=== PATIENT | male | born 1955 | race Caucasian/White ===

== ENCOUNTER → 2019-07-04 07:11 | Outpatient (CLI) | payer MEDICARE, OTHER, SELFPAY ==
--- NOTE | 2019-07-04 | DI.US.S_ITS ---
PROCEDURE: US ABD AORTA ANEURYSM SCREEN INDICATIONS: HISTORY SMOKING TECHNIQUE: Real time scanning was performed of the aorta and iliac arteries, with image documentation. COMPARISON: None. FINDINGS: Proximal aortic diameter could not be measured due to the poor visualization from bowel gas. Mid-aorta measures 2.1 cm. Distal aortic diameter is 1.8 cm. Aorta: Iliac arteries: Right common iliac artery measures 1.4 cm. Left common iliac artery measures 1.4 cm. IMPRESSION: Poor visualization of the upper third of the aorta due to overlying bowel gas, no aneurysm or dissection identified. Dictated by: Edwin Duran M.D. on 07/04/2019 at 10:51 Approved by: Edwin Duran M.D. on 07/04/2019 at 10:53
== END ==
PROVIDERS: Family Provider Family Medicine; PCP Family Medicine; Referring Provider Family Medicine; Visit Provider Family Medicine
DX: Z13.6 Encounter for screening for cardiovascular disorders (principal); I10 Essential (primary) hypertension; Z87.891 Personal history of nicotine dependence
CPT/HCPCS: 76706

== ENCOUNTER → 2019-12-26 14:15 | Outpatient (CLI) | payer MEDICARE, OTHER, SELFPAY ==
[2019-12-27 15:36] LABS: COVID19 Sendout Not Detected (Not Detect)
== END ==
PROVIDERS: PCP Family Medicine; Visit Provider Physician Assistant
DX: Z01.812 Encounter for preprocedural laboratory examination (principal)
CPT/HCPCS: 87635

== ENCOUNTER 2019-12-29 13:53 | Day surgery (SDC) | payer MEDICARE, OTHER, SELFPAY ==
--- NOTE | 2019-12-29 12:23 | P.HP_ITS ---
History of Present Illness History of Present Illness Date Patient Seen: 12/29/19 Chief complaint: SDC Narrative: 64 year old male comes in today for consideration of a screening colonoscopy. Last colonoscopy about 10-11 years ago in [facility], records not available at time of dictation. There have been no lower GI symptoms suggesting disease such as change in bowel habits, bleeding, abdominal pain or anemia. There's been no family history of colon cancer or colon polyps. Overall health issues have been stable, including no major cardiac events for at least 6 weeks. PCP: Dr. Beard Past medical history: Hypertension Hyperlipidemia Obesity Degenerative joint disease, bilateral Obstructive sleep apnea Past surgical history: Tonsillectomy Hernia removal Left knee arthroscopy Family history: Noncontributory . Social history: Retired Meds Home Medications and Allergies Home Medications Medication Instructions Recorded Confirmed Type lisinopril 10 mg PO DAILY 12/29/19 12/29/19 History loratadine [Claritin] 10 mg PO DAILY 12/29/19 12/29/19 History lovastatin 20 mg PO DAILY 12/29/19 12/29/19 History Allergies Allergy/AdvReac Type Severity Reaction Status Date / Time aspirin Allergy Severe Hives Verified 12/29/19 14:10 Review of Systems Review of Systems ROS: Yes All systems reviewed with the patient and are negative except as otherwise documented Exam Narrative Exam Narrative: GENERAL: Alert and oriented, appearing stated age and in no acute distress. HEENT: Head normocephalic/atraumatic. Neck soft and supple, no lymphad enopathy. LUNGS: Clear to ausculation bilaterally, no wheezes, rhonchi or rales. CV: Normal S1 and S2 with regular rate and rhythm, no audible murmurs, rubs or gallops. ABDOMEN: Soft, non-tender, non-distended, no organomegaly. Positive bowel sounds. EXTREMITIES: No clubbing, cyanosis, or edema. NEURO: Cranial nerves II through XII grossly intact, no focal deficits. PSYCH: Alert and oriented x 3. SKIN: No concerning lesions. Assessment & Plan Assessment & Plan narrative: 1. Screening for colon cancer Plan for colonoscopy. The nature and character of the procedure as well as anticipated results were discussed. The possibility of not completing the procedure was also discussed. Possible complications including aspiration pneumonia, bleeding, perforation and reaction to medications either for sedation or preparation and missed lesions were discussed. Questions were answered and proceeding to the colonoscopy was elected. Informed consent signed. I sincerely appreciate the referral allowing me to participate in this patient's care. Please contact me with any questions or concerns.
--- NOTE | 2019-12-29 12:26 | PM.OP.ENDO ---
Operative Date/Time/Diagnoses Date of procedure: 12/29/19 Pre-op diagnosis: 1. History of colon polyps, 2. Screening for colon cancer Post-op diagnosis: other (1. Normal colonoscopy) Procedure & Clinicians Study performed: Colonoscopy Same procedure as scheduled: Yes Indications: 1. History of colon polyps, 2. Screening for colon cancer Surgeon: Sonali Lazar Procedure Notes SCOAP/Timeout: 15:37 Procedure in detail: ENDOSCOPIST: Sonali Lazar MD Sedation RN: Shi Archuleta RN Sedation start time: 3:30 p.m. Sedation end time: 4:04 p.m. PROCEDURE: Colonoscopy INDICATIONS: 1. History of colon polyps 2. Screening for colon cancer MEDICATION: Levsin 0.125 mg sublingual, incremental doses of Versed and fentanyl until appropriate level sedation achieved. ASA CLASS: 2 CECAL WITHDRAWAL TIME: 14 minutes COMPLICATIONS: None. EXTENT OF PROCEDURE: Cecum. QUALITY OF PREP: Good with portions of liquid stool. PROCEDURE: Prior to insertion of the colonoscope, a digital rectal examination was accomplished with circumferential palpation of the distal rectal mucosa without significant findings being noted. The high-definition colonoscope was passed into the rectum in the usual fashion and advanced over to the cecum without difficulty. The ileocecal valve, appendiceal stoma, and medial wall all could be inspected and no abnormalities were seen. ASCENDING COLON: As the colonoscope was withdrawn, care was taken to expose and inspect the haustral folds and no abnormalities were seen. HEPATIC FLEXURE: Normal no polyps, diverticula or other abnormalities. TRANSVERSE COLON: Normal no polyps, diverticula or other abnormalities. DESCENDING COLON: Normal no polyps, diverticula or other abnormalities. SIGMOID COLON: Normal no polyps, diverticula or other abnormalities. RECTUM: Normal. J maneuver was produced. There was no significant perianal disease. The J maneuver was broken. The remainder of the rectum was inspected and there was no external hemorrhoid disease. The scope was withdrawn. IMPRESSION: 1. Normal colonoscopy PLAN: 1. Secondary to history of colon polyps, repeat colonoscopy in 5 years. The possibility of a missed lesion including a malignancy has been discussed with the patient previously. Potential alarm symptoms have been discussed and should be reported immediately. Complications: none Post-procedure Recommendations: Colonscopy in 5 years Follow up: weeks (2) Disposition: PACU
[2019-12-29] MEDS: HYOSCYAMINE 0.125 MG TABLET PO (14:12)
[2019-12-29 14:13] VITALS: BP 159/99; PULSE 90; RESP 16; TEMP 36.7; O2SAT 96; BMI 35.2
[2019-12-29] MEDS: LACTATED RINGERS 1,000 ML 200 ML IV (14:18)
[2019-12-29] MEDS: fentaNYL 250 MCG/5 ML INJ IV (16:07)
[2019-12-29] MEDS: MIDAZOLAM 5 MG/5 ML VIAL IV (16:07)
[2019-12-29 16:08] VITALS: BP 142/83; PULSE 71; RESP 20; O2SAT 95
[2019-12-29 16:14] VITALS: BP 173/98; PULSE 71; RESP 17; O2SAT 96
--- NOTE | 2019-12-29 16:15 | SUR.PHASEI ---
arrived to PACU drowsy, eyes open, oriented. Denies pain, HOB elevated, water given. 1614 Dr. Lazar spoke to the patient.
[2019-12-29 16:19] VITALS: BP 160/94; PULSE 71; RESP 19; O2SAT 96
[2019-12-29 16:25] VITALS: BP 157/88; PULSE 70; RESP 18; TEMP 36.3; O2SAT 97
--- NOTE | 2019-12-29 16:40 | SUR.PHASEII ---
1635 Pt awake, oriented, pleasant, joking around. Tolerated PO well. Stable on feet. Instructions given. Stable
== END 2019-12-29 16:36 | disposition home or self-care (01) ==
PROVIDERS: PCP Family Medicine; Referring Provider Student in an Organized Health Care Education/Training Program; Visit Provider Student in an Organized Health Care Education/Training Program
PROC: 0DJD8ZZ Inspection of Lower Intestinal Tract, Via Natural or Artificial Opening Endoscopic (ICD-10-PCS; CPT 45378; principal; 2019-12-29 14:45)
DX: Z12.11 Encounter for screening for malignant neoplasm of colon (principal); Z86.010 Personal history of colon polyps
CPT/HCPCS: G0105; J2250; J3010

== ENCOUNTER → 2021-02-10 15:14 | Outpatient (CLI) | payer MEDICARE, OTHER, SELFPAY ==
--- NOTE | 2021-02-10 | DI.RAD.S_ITS ---
PROCEDURE: XR LUMBAR SPINE 2-3V INDICATIONS: low back pain TECHNIQUE: Three views of the lumbar spine were acquired. COMPARISON: None. FINDINGS: Bones: Five [id number] vertebrae are present. Mild levoscoliosis with the apex at L3. Trace L3 on four left lateral subluxation. Trace retrolisthesis L1 on two. Severe disc height loss at L1-2 with anterior endplate sclerosis, spurring, and vacuum disc phenomenon. Moderate to severe disc height loss throughout the rest of the lumbar levels. Minor wedge deformity of T12. No lumbar vertebral body compression fractures. No suspicious bony lesions. Soft tissues: Overlying bowel gas pattern is normal. No suspicious soft tissue calcifications. Atherosclerotic calcification. IMPRESSION: 1. Moderate to severe disc degeneration throughout the lumbar spine, most severe at L1-2. Minor wedge deformity of T12, likely remote fracture. Dictated by: Amberly Vera M.D. on 02/10/2021 at 17:22 Approved by: Amberly Vera M.D. on 02/10/2021 at 17:24
== END ==
PROVIDERS: Referring Provider Chiropractor; Visit Provider Chiropractor
DX: M54.5 Low back pain (principal); M51.36 Other intervertebral disc degeneration, lumbar region; M54.9 Dorsalgia, unspecified
CPT/HCPCS: 72100

== ENCOUNTER → 2021-06-02 09:04 | Outpatient (CLI) | payer MEDICARE, OTHER, SELFPAY ==
[2021-06-02 10:54] LABS: COVID19 -Nasal RAPID Negative (Negative)
== END ==
PROVIDERS: Visit Provider Surgery
DX: Z01.812 Encounter for preprocedural laboratory examination (principal); Z20.822 Contact with and (suspected) exposure to COVID-19
CPT/HCPCS: 87635; C9803

== ENCOUNTER 2021-06-03 06:45 | Day surgery (SDC) | payer MEDICARE, OTHER, SELFPAY ==
[2021-05-27 09:20] VITALS: BMI 35.2
[2021-06-03] VITALS (13 sets, daily range): BP systolic 131–159; BP diastolic 69–96; PULSE 67–97; RESP 14–23; TEMP 36.1–36.8; O2SAT 93–98; BMI 35.2
[2021-06-03] MEDS: LACTATED RINGERS 1,000 ML 100 ML IV ×2 (07:13→10:02)
--- NOTE | 2021-06-03 07:29 | PM.HP.1 ---
History of Present Illness History of Present Illness Date Patient Seen: 06/03/21 Time Patient Seen: 07:30 Chief complaint: SDC Narrative: 65-year-old man with a recurrent right inguinal previous childhood open repair. He is here for an elective open repair. He was last seen in February of 2021 there have been no interval changes in his health. He is feeling well today. Patient History Medical History (Updated 05/27/21 @ 09:24 by Michelle Guerrero RN) Anesthesia Former cigarette smoker HTN (hypertension) Hyperlipidemia KIM (obstructive sleep apnea) Surgical History (Updated 05/27/21 @ 09:27 by Michelle Guerrero RN) H/O right inguinal hernia repair (~1961) Hx of colonoscopy (12/29/19) Family & Social History Family History Mother Diabetes mellitus Social History: household members spouse Tobacco & Substance use: Smoking Status Former smoker alcohol intake current alcohol intake frequency 0-2 drinks per day Substance Use Type marijuana Meds Home Medications and Allergies Home Medications Medication Instructions Recorded Confirmed Type lisinopril 10 mg tablet 10 mg PO DAILY 12/29/19 06/03/21 History loratadine 10 mg tablet (Claritin) 10 mg PO DAILY 12/29/19 06/03/21 History lovastatin 20 mg tablet 20 mg PO DAILY 12/29/19 06/03/21 History Allergies Allergy/AdvReac Type Severity Reaction Status Date / Time aspirin Allergy Severe Hives Verified 06/03/21 06:59 Exam Vital Signs (past 8 hours): - 06/03/21 07:02 Temperature 97.8 F Pulse Rate 75 Respiratory Rate 16 Blood Pressure 152/96 H Pulse Oximetry 96 Oxygen Delivery Method Room Air Narrative Exam Narrative: General adult male alert oriented no acute distress Chest nonlabored respirations Abdomen soft nontender. Assessment & Plan Assessment and plan (1) Recurrent right inguinal hernia: Status: Acute Assessment & Plan narrative: 65-year-old man with a recurrent right inguinal hernia reducible here for an elective open repair. Technical details of the procedure were again discussed with the patient. Operative risks including bleeding, infection, damage to surrounding structures, chronic pain and recurrence were discussed. His questions have been answered he is in agreement with this plan will proceed to the operating room. Time Spent With Patient Critical Care time: I spent a total of [] minutes of critical care time on this patient's care today; this time is exclusive of procedural time.
[2021-06-03] MEDS: CEFAZOLIN 2 GM/20 ML SYRINGE IV (07:54)
--- NOTE | 2021-06-03 08:03 | SUR.OPER ---
Supine on padded OR bed, head on pillow, arms secured on padded arm boards at <90 degrees abduction, legs uncrossed, safety belt at thigh, tape over blanket over lower legs.
[2021-06-03] MEDS: BUPIVACAINE 0.25% (PF) VIAL 30 ML INJ (08:07)
[2021-06-03] MEDS: MORPHINE 10 MG/ML INJ IV ×5 (09:31→09:56)
[2021-06-03] MEDS: ACETAMINOPHEN 325 MG TABLET 975 MG PO (09:54)
[2021-06-03] MEDS: OXYCODONE IR 5 MG TABLET PO (09:54)
[2021-06-03] MEDS: HYDROMORPHONE 2 MG INJ IV ×2 (10:00→10:15)
--- NOTE | 2021-06-03 10:18 | SUR.PHASEI ---
0927 - Pt received to PACU after general anesthesia. Airway patent, self maintained. Report received from Dr Johnson and Russ RN. [id number] - Dr Johnson notified that pain 10/10 after 8mg Morphine. Dilaudid ordered.
--- NOTE | 2021-06-03 10:50 | SUR.PHASEII ---
Pain down too 6/10. Pt able to move and reposition self. More relaxed. Carrying on conversation. O2 sats 93-94%. Will start on incentive spirometery in Phase II.
--- NOTE | 2021-06-03 11:23 | PM.OP.1 ---
Operative Date/Time/Diagnoses Date of procedure: 06/03/21 Time of procedure: 11:23 Pre-op diagnosis: Recurrent right inguinal hernia Post-op diagnosis: same Procedure & Clinicians Procedure: Open repair of recurrent right inguinal hernia with mesh Same procedure as scheduled: Yes Indications: Symptomatic reducible right inguinal hernia recurrent from a previous childhood repair Surgeon: Chapito Bustillo Anesthesia Type: General Operative Notes Findings: Large indirect hernia and a direct floor defect Specimen(s): none sent Estimated Blood Loss (mL): 10 Procedure in detail: The patient was placed supine on the table and bilateral lower extremity compression devices were applied. Anesthesia was induced they were intubated with an LMA and received 2g of Ancef. A time-out was performed. They were prepped and draped in sterile fashion. The right external inguinal ring and the anterior superior iliac crest were identified and marked. 1 finger breath above the inguinal ligament the skin was infiltrated with 0.25% bupivacaine. The skin incision was made through the previous right inguinal incision. The external oblique aponeurosis was opened along the direction of its fibers. Inguinal canal the structures densely adherent with adhesions. The cord was carefully dissected away from the inguinal canal adjacent to the pubic tubercle. The cord was encircled with a Lito drain. A direct floor defect was identified and it was reduced into the abdomen and the internal oblique aporneuorsis was approximated to the inguinal ligament over a plug of mesh using Ethibond suture. The cremasteric fibers surrounding the cord were divided using electrocautery adjacent to the internal ring.. There was a large indirect hernia on the anterior medial aspect of the cord which was skeletonized away from the vas deferens and testicular blood supply. The indirect hernia was quite large and therefore i carefully opened and demonstrated hernia sac without intestinal content. The sac was suture ligated with vicryl and then excised. The stump then spontaneously reduced into the abdomen. I selected a 7x 15 cm lightweight Pro Loop hernia mesh. The inferior medial aspect of the mesh was anchored to insertion of the rectus muscle to the pubic tubercle such that there was approximately 2 cm of tubercle overlap with Ethibond. Several interupted sutures were then placed along the inferior edge of the mesh to the shelving edge of the inguinal ligament. Interrupted 3 0 Vicryl suture was used to anchor the superior aspect of the mesh to the conjoined tendon in several places. The tails were then reapproximated loosely around the spermatic cord. The tails of the mesh were then tucked under the external oblique aponeurosis. The repair was checked for hemostasis. The wound was irrigated with sterile saline. The external oblique aponeurosis was reapproximated in a running fashion using 3 0 Vicryl. The subcutaneous tissues were reapproximated with 3 0 Vicryl skin closed with 4 0 Monocryl followed by the application of Dermabond. At the end of the operation I ensured that both testicles were within the scrotum. The sponge instrument count at the end operation was correct. The patient emerged from anesthesia was extubated and transferred to the postoperative care unit in stable condition. A total of 30 ml of of 0.25% bupivicaine was used to infiltrate the skin. Complications: none Post-operative Condition: stable Disposition: same day surgery
[2021-06-03] MEDS: KETOROLAC 30 MG/ML VIAL IV (11:55)
--- NOTE | 2021-06-03 13:33 | SUR.PHASEII ---
Assumed care from DARRYL Gant. Incentive with instruction given to pt, pt using IS and gets up to 2500 easily. Pt placed on 1/l nasal cannula for room air sat of 89%. Pt checked on through out stay. Pain up to 7/10, Dr. Bustillo to bedside spoke with pt, Torodol ordered, delay in administration due to question of admin by another staff. Torodol eventually given prior to d/c. Pt's pain down to 5/10, able to move comfortably and stated pain was tolerable. Dress to r groin remained c/d/i. Ice to site 20 m in on/off. CPAP use with naps and sleep encouraged. this along with d/c instructions were discussed with as well at car. Pt left unit in stable condition.
== END 2021-06-03 12:30 | disposition home or self-care (01) ==
PROVIDERS: Referring Provider Surgery; Visit Provider Surgery
PROC: (CPT 49520; principal; 2021-06-03 07:45)
DX: K40.91 Unilateral inguinal hernia, without obstruction or gangrene, recurrent (principal); I10 Essential (primary) hypertension; E78.5 Hyperlipidemia, unspecified; G47.33 Obstructive sleep apnea (adult) (pediatric)
CPT/HCPCS: 49520; 82962; C1781; J0690; J1100; J1170; J1885; J2250; J2270; J2405; J2704; J3010

== ENCOUNTER → 2024-02-11 11:02 | Outpatient (CLI) | payer MEDICARE, OTHER, SELFPAY ==
--- NOTE | 2024-02-11 11:05 | DI.RAD.S_ITS ---
PROCEDURE: XR HIP W PEL IF DONE RT 2V INDICATIONS: HIP PAIN TECHNIQUE: Two views of the hip were acquired. COMPARISON: None. FINDINGS: Bones: There are no osseous abnormalities. SI and hip joints: Normal in width and alignment without arthritic change Soft tissues: No soft tissue swelling, calcification or mass. IMPRESSION: Normal pelvis Severe L3-4 and moderate L5-S1 degenerative disc disease incidentally noted Dictated by: Josiah Chicas M.D. on 02/14/2024 at 6:26 Approved by: Josiah Chicas M.D. on 02/14/2024 at 6:28
== END ==
PROVIDERS: PCP Family Medicine; Referring Provider Family Medicine; Visit Provider Family Medicine
DX: M25.551 Pain in right hip (principal); M51.36 Other intervertebral disc degeneration, lumbar region; M51.37 Other intervertebral disc degeneration, lumbosacral region
CPT/HCPCS: 73502

== ENCOUNTER → 2025-03-16 15:06 | Outpatient (CLI) | payer MEDICARE, OTHER, SELFPAY ==
--- NOTE | 2025-03-16 15:08 | DI.MRI.S_ITS ---
PROCEDURE: MR LUMBAR SPINE WO CON INDICATIONS: RT LUMBAT RADICULOPATHY TECHNIQUE: Noncontrast sagittal T1 spin echo and T2 fast echo, sagittal STIR, and T2 fast spin echo through the lumbar spine. In cases with scoliosis, additional coronal T2 fast spin echo may be performed. COMPARISON: None. FINDINGS: Image quality: Excellent Mild levocurvature of the lumbar spine, centered at L3-4. Mild straightening of the lumbar spine. Mild anterolisthesis of T11 on T12. Mild retrolisthesis of L1 on L2, and L5 on S1. Vertebral body height of the lumbar spine are well maintained. Multilevel disc bulge and disc desiccation. Mild fibrovascular end plate change at L1-2. Conus terminates at the level of T12-L1, and is unremarkable. Right neural foraminal stenosis: Mild at L2-3, moderate at L3-4, mild at L4-5 and L5-S1. Left neural foraminal stenosis: Mild at L3-4, L4-5, and L5-S1. Axial images: T12-L1: Mild bilateral facet arthropathy. No central canal stenosis. L1-2: Mild bilateral facet arthropathy. Posterior disc uncovering. Mild central canal stenosis. L2-3: Moderate bilateral facet arthropathy. Disc bulge. Epidural lipomatosis. Severe central canal stenosis. L3-4: Moderate bilateral facet arthropathy. Disc bulge. Epidural lipomatosis. Severe central canal stenosis. L4-5: Moderate bilateral facet arthropathy. Disc bulge with annular fissure. Epidural lipomatosis. Moderate central canal stenosis. L5-S1: Posterior disc uncovering. No central canal stenosis. Mild bilateral facet arthropathy. Visualized sacrum is intact. IMPRESSION: 1. Severe central canal stenosis at L2-3 and L3-4. 2. Moderate right neural foraminal stenosis at L3-4. Dictated by: Patricia Angulo M.D. on 03/16/2025 at 17:07 Approved by: Patricia Angulo M.D. on 03/16/2025 at 17:19
== END ==
PROVIDERS: PCP Family Medicine; Referring Provider Family Medicine; Visit Provider Family Medicine
DX: M51.16 Intervertebral disc disorders with radiculopathy, lumbar region (principal); M47.26 Other spondylosis with radiculopathy, lumbar region; M47.27 Other spondylosis with radiculopathy, lumbosacral region; M48.061 Spinal stenosis, lumbar region without neurogenic claudication; M48.07 Spinal stenosis, lumbosacral region; M48.8X6 Other specified spondylopathies, lumbar region
CPT/HCPCS: 72148